=== PATIENT | female | born 1985 | race Caucasian/White ===

== ENCOUNTER 2017-05-17 14:21 | Emergency (ER) | payer MEDICAID ==
[~2017-05-17] VITALS: Ht 165.1 cm; Wt 75.0 kg
[~2017-05-17 14:21] MED LIST: BENZ1LOZ30 PO; BISA10SU60 RC; CARI350T PO; CYCL-1 PO; D ME PO; DOCU-28 PO; FLUT16SP2 BOTHNARES; MAGN296S50 PO; NO HOME MEDS; ONDA4TAB59 PO; ONDA4TAB6 PO; ONDA8TAB9 PO; SUCR1ORA2 PO
[2017-05-17] MEDS ORDERED: acetaminophen 325mg tablet PO ONE (14:55)
[2017-05-17] MEDS ORDERED: ibuprofen 200mg tablet PO ONE (14:55)
[2017-05-17 15:59] VITALS: BP 110/63
== END 2017-05-17 16:00 | disposition home or self-care (01) ==
LOC: ER 14:22
DX: J11.1 Influenza due to unidentified influenza virus with other respiratory manifestations (principal); R07.89 Other chest pain; I10 Essential (primary) hypertension; G89.29 Other chronic pain; F15.10 Other stimulant abuse, uncomplicated; Z88.8 Allergy status to other drugs, medicaments and biological substances
CPT/HCPCS: 99283

== ENCOUNTER → 2017-07-24 | Emergency (ER) | payer MEDICAID ==
[~2017-07-24] VITALS: Ht 165.1 cm; Wt 86.0 kg
[2017-07-24 16:52] VITALS: BP 154/80
[2017-07-24 17:19] LABS: BASOPHILS # (AUTO) 0.1 X10'3 (0-0.2); EOSINOPHILS # (AUTO) 0.3 X10'3 (0-0.9); EOSINOPHILS % (AUTO) 2.2 % (0-6); HEMOGLOBIN 12.6 g/dl (12.0-16.0); LYMPHOCYTES # (AUTO) 2.7 X10'3 (1.1-4.8); LYMPHOCYTES % (AUTO) 20.2 % (21-51); MEAN CORPUSCULAR HEMOGLOBIN 29.6 PG (27.0-31.0); MEAN CORPUSCULAR HGB CONC 34.2 % (33.0-36.5); MEAN CORPUSCULAR VOLUME 86.6 FL (78-98); MEAN PLATELET VOLUME 9.9 FL (7.4-10.4); MONOCYTES # (AUTO) 0.5 X10'3 (0-0.9); MONOCYTES % (AUTO) 4.1 % (2-12); NEUTROPHILS # (AUTO) 9.6 X10'3 (1.8-7.7); NEUTROPHILS % (AUTO) 72.5 % (42-75); PLATELET COUNT 258 X10'3 (140-440); RED BLOOD COUNT 4.27 X10'6 (4.20-5.60); RED CELL DISTRIBUTION WIDTH 13.5 % (11.5-14.5); WHITE BLOOD COUNT 13.2 X10'3 (4.5-11.0)
[2017-07-24 17:28] LABS: INR 0.9 INR; PROTHROMBIN TIME 9.6 SECONDS (9.0-12.0)
[2017-07-24 17:29] LABS: URINE HCG NEGATIVE (NEG)
[2017-07-24 17:34] LABS: CLARITY,URINE CLEAR (Clear); COLOR,URINE YELLOW (Yellow); GLUCOSE, URINE NEGATIVE (Neg); KETONES,URINE NEGATIVE (Neg); LEUKOCYTE ESTERASE ,URINE NEGATIVE (Neg); NITRITES, URINE NEGATIVE (Neg); OCCULT BLOOD,URINE NEGATIVE (Neg); PROTEIN,URINE NEGATIVE (Neg); UROBILINOGEN,URINE 0.2 E.U/dL (0.2-1.0)
[2017-07-24 17:35] LABS: ALANINE AMINOTRANSFERASE 30 U/L (12-78); ALBUMIN 3.5 G/DL (3.4-5.0); ALKALINE PHOSPHATASE 95 IU/L (46-116); ANION GAP 12 (8-16); ASPARTATE AMINO TRANSFERASE 15 U/L (10-37); BILIRUBIN,TOTAL 0.3 MG/DL (0.1-1.0); BLOOD UREA NITROGEN 12 MG/DL (7-18); BUN/CREATININE RATIO 21.4 (6.6-38.0); CALCIUM 8.5 MG/DL (8.5-10.1); CHLORIDE 107 MMOL/L (99-107); CREATININE 0.56 MG/DL (0.40-0.90); GLUCOSE 122 MG/DL (70-104); LIPASE 87 U/L (73-393); POTASSIUM 3.2 MMOL/L (3.5-5.1); SODIUM 142 MMOL/L (135-145); TOTAL CARBON DIOXIDE 22.8 MMOL/L (24-32); TOTAL PROTEIN 7.1 G/DL (6.4-8.2); eGFR > 90 ML/MIN
[2017-07-24 17:36] LABS: UA COLLECTION TYPE CLN CATCH MIDSTREAM
== END | disposition left against medical advice (07) ==
LOC: ER 16:41
DX: R10.9 Unspecified abdominal pain (principal); Z53.21 Procedure and treatment not carried out due to patient leaving prior to being seen by health care provider
CPT/HCPCS: 36415; 80053; 81003; 81025; 83690; 85025; 85610; 99281

== ENCOUNTER 2017-10-23 20:27 | Emergency (ER) | payer MEDICAID ==
[~2017-10-23] VITALS: Ht 165.1 cm; Wt 95.8 kg
[2017-10-23 20:39] VITALS: BP 150/92
[2017-10-23 21:21] LABS: BASOPHILS # (AUTO) 0.1 X10'3 (0-0.2); BASOPHILS % (AUTO) 0.4 % (0-1); EOSINOPHILS # (AUTO) 0.3 X10'3 (0-0.9); HEMATOCRIT 37.9 % (35.0-45.0); HEMOGLOBIN 13.1 g/dl (12.0-16.0); LYMPHOCYTES # (AUTO) 3.3 X10'3 (1.1-4.8); LYMPHOCYTES % (AUTO) 25.1 % (21-51); MEAN CORPUSCULAR HEMOGLOBIN 29.7 PG (27.0-31.0); MEAN CORPUSCULAR HGB CONC 34.4 % (33.0-36.5); MEAN CORPUSCULAR VOLUME 86.2 FL (78-98); MEAN PLATELET VOLUME 9.4 FL (7.4-10.4); MONOCYTES # (AUTO) 0.8 X10'3 (0-0.9); NEUTROPHILS # (AUTO) 8.8 X10'3 (1.8-7.7); NEUTROPHILS % (AUTO) 66.5 % (42-75); PLATELET COUNT 282 X10'3 (140-440); RED CELL DISTRIBUTION WIDTH 13.9 % (11.5-14.5); WHITE BLOOD COUNT 13.2 X10'3 (4.5-11.0)
[2017-10-23 21:32] LABS: INR 0.9 INR; PROTHROMBIN TIME 9.6 SECONDS (9.0-12.0)
[2017-10-23 21:37] LABS: ALANINE AMINOTRANSFERASE 35 U/L (12-78); ALBUMIN 3.4 G/DL (3.4-5.0); ALBUMIN/GLOBULIN RATIO 0.9 (1.1-1.5); ALKALINE PHOSPHATASE 109 IU/L (46-116); ANION GAP 10 (8-16); ASPARTATE AMINO TRANSFERASE 16 U/L (10-37); BILIRUBIN,TOTAL 0.2 MG/DL (0.1-1.0); BLOOD UREA NITROGEN 9 MG/DL (7-18); BUN/CREATININE RATIO 11.7 (6.6-38.0); CALCIUM 8.9 MG/DL (8.5-10.1); CHLORIDE 105 MMOL/L (99-107); CREATININE 0.77 MG/DL (0.40-0.90); GLUCOSE 123 MG/DL (70-104); LIPASE 71 U/L (73-393); POTASSIUM 3.3 MMOL/L (3.5-5.1); SODIUM 141 MMOL/L (135-145); TOTAL CARBON DIOXIDE 25.9 MMOL/L (24-32); TOTAL PROTEIN 7.2 G/DL (6.4-8.2); eGFR 86 ML/MIN
[2017-10-23 21:40] LABS: URINE HCG NEGATIVE (NEG)
[2017-10-23 21:49] LABS: COLOR,URINE YELLOW (Yellow); GLUCOSE, URINE NEGATIVE (Neg); KETONES,URINE NEGATIVE (Neg); LEUKOCYTE ESTERASE ,URINE NEGATIVE (Neg); NITRITES, URINE NEGATIVE (Neg); OCCULT BLOOD,URINE NEGATIVE (Neg); PROTEIN,URINE NEGATIVE (Neg)
[2017-10-23 21:56] LABS: UA COLLECTION TYPE CLN CATCH MIDSTREAM
[2017-10-23 21:57] LABS: CLARITY,URINE TURBID (Clear)
[2017-10-23 21:58] LABS: BACTERIA,URINE 2+ /HPF (Neg); RBC,URINE NONE SEEN /HPF (0-2); SQUAMOUS EPITHELIAL CELL,UR MANY /LPF (FEW); WBC,URINE NONE SEEN /HPF (0-4)
[2017-10-23 21:59] LABS: AMORPHOUS PHOSPHATES 2+
== END 2017-10-23 23:27 | disposition left against medical advice (07) ==
LOC: ER 20:30
DX: R10.9 Unspecified abdominal pain (principal); Z53.21 Procedure and treatment not carried out due to patient leaving prior to being seen by health care provider
CPT/HCPCS: 36415; 74018; 80053; 81001; 81025; 83690; 85025; 85610; 99281

== ENCOUNTER 2018-04-07 17:34 | Emergency (ER) | payer MEDICAID ==
[~2018-04-07] VITALS: Ht 165.1 cm; Wt 104.5 kg
[2018-04-07 17:44] VITALS: BP 198/120
[2018-04-07 18:48] LABS: BASOPHILS % (AUTO) 0.3 % (0-1); EOSINOPHILS # (AUTO) 0.2 X10'3 (0-0.9); EOSINOPHILS % (AUTO) 2.2 % (0-6); HEMATOCRIT 39.7 % (35.0-45.0); HEMOGLOBIN 13.2 g/dl (12.0-16.0); MEAN CORPUSCULAR HEMOGLOBIN 28.8 PG (27.0-31.0); MEAN CORPUSCULAR HGB CONC 33.4 % (33.0-36.5); MEAN CORPUSCULAR VOLUME 86.4 FL (78-98); MEAN PLATELET VOLUME 10.1 FL (7.4-10.4); MONOCYTES # (AUTO) 0.7 X10'3 (0-0.9); MONOCYTES % (AUTO) 7.4 % (2-12); NEUTROPHILS # (AUTO) 6.5 X10'3 (1.8-7.7); NEUTROPHILS % (AUTO) 69.1 % (42-75); PLATELET COUNT 284 X10'3 (140-440); RED CELL DISTRIBUTION WIDTH 14.2 % (11.5-14.5); WHITE BLOOD COUNT 9.4 X10'3 (4.5-11.0)
[2018-04-07 18:49] LABS: PROTHROMBIN TIME 9.7 SECONDS (9.0-12.0)
[2018-04-07 19:01] LABS: ALANINE AMINOTRANSFERASE 58 U/L (12-78); ALBUMIN 3.3 G/DL (3.4-5.0); ALBUMIN/GLOBULIN RATIO 0.8 (1.1-1.5); ALKALINE PHOSPHATASE 118 IU/L (46-116); ANION GAP 8 (8-16); ASPARTATE AMINO TRANSFERASE 45 U/L (10-37); BILIRUBIN,TOTAL 0.3 MG/DL (0.1-1.0); BLOOD UREA NITROGEN 9 MG/DL (7-18); BUN/CREATININE RATIO 14.5 (6.6-38.0); CALCIUM 8.4 MG/DL (8.5-10.1); CHLORIDE 103 MMOL/L (99-107); CREATININE 0.62 MG/DL (0.40-0.90); GLUCOSE 109 MG/DL (70-104); LIPASE 84 U/L (73-393); POTASSIUM 3.5 MMOL/L (3.5-5.1); SODIUM 139 MMOL/L (135-145); TOTAL CARBON DIOXIDE 27.6 MMOL/L (24-32); TOTAL PROTEIN 7.4 G/DL (6.4-8.2); eGFR > 90 ML/MIN
[2018-04-07 19:59] LABS: URINE HCG NEGATIVE (NEG)
[2018-04-07 20:06] LABS: CLARITY,URINE CLOUDY (Clear); COLOR,URINE AMBER (Yellow); GLUCOSE, URINE NEGATIVE (Neg); KETONES,URINE NEGATIVE (Neg); LEUKOCYTE ESTERASE ,URINE NEGATIVE (Neg); OCCULT BLOOD,URINE LARGE (Neg); PH,URINE 7.5 (4.8-8.0); PROTEIN,URINE TRACE mg/dl (Neg)
[2018-04-07 20:07] LABS: UA COLLECTION TYPE CLN CATCH MIDSTREAM
[2018-04-07 20:23] LABS: BACTERIA,URINE FEW /HPF (Neg); MUCUS STRANDS MODERATE /LPF (Neg); NITRITES, URINE NEGATIVE (Neg); RBC,URINE TNTC /HPF (0-2); SQUAMOUS EPITHELIAL CELL,UR FEW /LPF (FEW); WBC,URINE 0-4 /HPF (0-4)
[2018-04-07] MEDS ORDERED: ACET-3068 PO (21:38)
== END 2018-04-07 21:52 | disposition home or self-care (01) ==
LOC: ER 17:34
DX: S29.011A Strain of muscle and tendon of front wall of thorax, initial encounter (principal); R07.89 Other chest pain; G43.909 Migraine, unspecified, not intractable, without status migrainosus; I10 Essential (primary) hypertension; G89.29 Other chronic pain; Z90.49 Acquired absence of other specified parts of digestive tract; Z98.51 Tubal ligation status; Z98.890 Other specified postprocedural states; Z56.0 Unemployment, unspecified; Z87.891 Personal history of nicotine dependence; Z79.899 Other long term (current) drug therapy; Z88.8 Allergy status to other drugs, medicaments and biological substances; X58.XXXA Exposure to other specified factors, initial encounter; Y93.89 Activity, other specified; Y92.89 Other specified places as the place of occurrence of the external cause; Y99.9 Unspecified external cause status
CPT/HCPCS: 36415; 74176; 80053; 81001; 81025; 83690; 85025; 85610; 99284

== ENCOUNTER 2018-04-29 20:47 | Emergency (ER) | payer MEDICAID ==
[~2018-04-29] VITALS: Ht 165.1 cm; Wt 101.0 kg
[~2018-04-29 20:47] MED LIST changes: +ACET-3068 PO
[2018-04-29 20:57] VITALS: BP 167/110
[2018-04-30] MEDS ORDERED: IBUP-1985 PO (01:00)
== END 2018-04-30 01:10 | disposition home or self-care (01) ==
LOC: ER 20:48
DX: S93.691A Other sprain of right foot, initial encounter (principal); G43.909 Migraine, unspecified, not intractable, without status migrainosus; I10 Essential (primary) hypertension; G89.29 Other chronic pain; Z90.49 Acquired absence of other specified parts of digestive tract; Z98.890 Other specified postprocedural states; Z98.51 Tubal ligation status; Z56.0 Unemployment, unspecified; Z88.8 Allergy status to other drugs, medicaments and biological substances; Z79.899 Other long term (current) drug therapy; X50.1XXA Overexertion from prolonged static or awkward postures, initial encounter; Y93.89 Activity, other specified; Y92.89 Other specified places as the place of occurrence of the external cause; Y99.9 Unspecified external cause status
CPT/HCPCS: 73630; 99283

== ENCOUNTER 2019-06-10 15:57 | Emergency (ER) | payer MEDICAID ==
[~2019-06-10] VITALS: Ht 165.1 cm; Wt 93.0 kg
[~2019-06-10 15:57] MED LIST changes: -ACET-3068 PO; +IBUP-1985 PO; -MAGN296S50 PO; +MAGN296S70 PO
[2019-06-10 16:15] VITALS: BP 141/94
[2019-06-10] MEDS ORDERED: morphine 10mg/ml inj. IM ONE (16:50)
== END 2019-06-10 17:29 | disposition home or self-care (01) ==
LOC: ER 15:58
DX: S83.203A Other tear of unspecified meniscus, current injury, right knee, initial encounter (principal); G89.29 Other chronic pain; G43.909 Migraine, unspecified, not intractable, without status migrainosus; I10 Essential (primary) hypertension; Z90.49 Acquired absence of other specified parts of digestive tract; Z98.51 Tubal ligation status; Z98.890 Other specified postprocedural states; Z87.891 Personal history of nicotine dependence; Z56.0 Unemployment, unspecified; Z88.8 Allergy status to other drugs, medicaments and biological substances; Z79.899 Other long term (current) drug therapy; X58.XXXA Exposure to other specified factors, initial encounter; Y93.89 Activity, other specified; Y92.89 Other specified places as the place of occurrence of the external cause; Y99.8 Other external cause status
CPT/HCPCS: 96372; 99283; J2270

== ENCOUNTER 2020-06-24 00:38 | Emergency (ER) | payer MEDICAID ==
[~2020-06-24] VITALS: Ht 165.1 cm; Wt 81.8 kg
--- NOTE | 2020-06-24 00:59 | NUR ---
PAULA () #[phone] FOR [facility]IDE HOME
[2020-06-24] MEDS ORDERED: normal saline 1000ml 1,000 ML IV ONE (01:25)
[2020-06-24] MEDS ORDERED: proCHLORperazine 10 MG/2 ml inj IV ONE (01:25)
[2020-06-24] MEDS ORDERED: diphenhydrAMINE 50 mg/ml inj IV ONE (01:25)
[2020-06-24] MEDS ORDERED: acetaminophen 325mg tablet PO ONE (01:25)
[2020-06-24 03:02] VITALS: BP 121/78
== END 2020-06-24 03:25 | disposition home or self-care (01) ==
LOC: ER 00:39
DX: S06.0X9A Concussion with loss of consciousness of unspecified duration, initial encounter (principal); G43.909 Migraine, unspecified, not intractable, without status migrainosus; I10 Essential (primary) hypertension; G89.29 Other chronic pain; Z87.01 Personal history of pneumonia (recurrent); Z90.49 Acquired absence of other specified parts of digestive tract; Z98.51 Tubal ligation status; Z98.890 Other specified postprocedural states; Z56.0 Unemployment, unspecified; Z88.1 Allergy status to other antibiotic agents; Z88.8 Allergy status to other drugs, medicaments and biological substances; Z79.899 Other long term (current) drug therapy; W01.0XXA Fall on same level from slipping, tripping and stumbling without subsequent striking against object, initial encounter; Y93.89 Activity, other specified; Y92.89 Other specified places as the place of occurrence of the external cause; Y99.8 Other external cause status
CPT/HCPCS: 70450; 96361; 96374; 96375; 99284; J0780; J1200; J7030

== ENCOUNTER 2020-06-27 21:08 | Emergency (ER) | payer MEDICAID ==
[~2020-06-27] VITALS: Ht 165.1 cm; Wt 81.8 kg
[2020-06-27 21:40] VITALS: BP 159/116
[2020-06-27] MEDS ORDERED: BENZ-16 PO (21:57)
[2020-06-27] MEDS ORDERED: AMOX-422 PO (21:57)
== END 2020-06-27 22:17 | disposition home or self-care (01) ==
LOC: ER 21:11
DX: J02.0 Streptococcal pharyngitis (principal); B95.5 Unspecified streptococcus as the cause of diseases classified elsewhere; G43.909 Migraine, unspecified, not intractable, without status migrainosus; G89.29 Other chronic pain; Z90.49 Acquired absence of other specified parts of digestive tract; Z98.51 Tubal ligation status; Z98.890 Other specified postprocedural states; Z56.0 Unemployment, unspecified; Z88.8 Allergy status to other drugs, medicaments and biological substances; Z88.2 Allergy status to sulfonamides; Z79.899 Other long term (current) drug therapy
CPT/HCPCS: 87081; 87880; 99283

== ENCOUNTER 2020-09-13 21:12 | Emergency (ER) | payer MEDICAID ==
[~2020-09-13] VITALS: Ht 165.1 cm; Wt 85.5 kg
[2020-09-13 21:23] VITALS: BP 137/90
== END 2020-09-13 22:49 | disposition left against medical advice (07) ==
LOC: ER 21:13
DX: R05 Cough (principal); Z53.21 Procedure and treatment not carried out due to patient leaving prior to being seen by health care provider

== ENCOUNTER 2021-03-08 12:28 | Emergency (ER) | payer MEDICAID ==
[~2021-03-08] VITALS: Ht 165.1 cm; Wt 88.8 kg
[2021-03-08 13:43] VITALS: BP 128/98
[2021-03-08] MEDS ORDERED: ondansetron 4mg rapidly disintigrating tab PO ONE (16:55)
[2021-03-08] MEDS ORDERED: ketorolac tromethamine 15mg/ml inj. IM ONE (16:55)
[2021-03-08] MEDS ORDERED: HYDROcodone/acetaminophen 10/325mg tab PO ONE (16:55)
[2021-03-08] MEDS ORDERED: CLIN300C70 PO (16:56)
[2021-03-08] MEDS ORDERED: ONDA4TAB6 PO (16:56)
[2021-03-08] MEDS ORDERED: HYDR-3965 PO (16:56)
== END 2021-03-08 17:07 | disposition home or self-care (01) ==
LOC: ER 12:29
DX: K04.7 Periapical abscess without sinus (principal); K08.89 Other specified disorders of teeth and supporting structures; G43.909 Migraine, unspecified, not intractable, without status migrainosus; I10 Essential (primary) hypertension; G89.29 Other chronic pain; Z98.818 Other dental procedure status; Z87.01 Personal history of pneumonia (recurrent); Z56.0 Unemployment, unspecified; Z98.890 Other specified postprocedural states; Z98.891 History of uterine scar from previous surgery; Z98.51 Tubal ligation status; Z79.899 Other long term (current) drug therapy; Z88.2 Allergy status to sulfonamides; Z88.8 Allergy status to other drugs, medicaments and biological substances
CPT/HCPCS: 99283

== ENCOUNTER 2021-03-22 20:31 | Emergency (ER) | payer MEDICAID ==
[~2021-03-22] VITALS: Ht 165.1 cm; Wt 89.6 kg
[2021-03-22 20:38] VITALS: BP 129/78
== END 2021-03-22 22:02 | disposition left against medical advice (07) ==
LOC: ER 20:33
DX: Z53.21 Procedure and treatment not carried out due to patient leaving prior to being seen by health care provider (principal)

== ENCOUNTER 2021-08-15 18:00 | Emergency (ER) | payer MEDICAID ==
[~2021-08-15] VITALS: Ht 165.1 cm; Wt 90.9 kg
[2021-08-15] MEDS ORDERED: AMOX-117 PO (19:49)
[2021-08-15] MEDS ORDERED: HYDR-3964 PO (19:49)
[2021-08-15 20:01] VITALS: BP 156/86
== END 2021-08-15 20:03 | disposition home or self-care (01) ==
LOC: ER 18:01
DX: J34.89 Other specified disorders of nose and nasal sinuses (principal); R05.9 Cough, unspecified; G43.909 Migraine, unspecified, not intractable, without status migrainosus; I10 Essential (primary) hypertension; G89.29 Other chronic pain; F17.210 Nicotine dependence, cigarettes, uncomplicated; Z56.0 Unemployment, unspecified; Z88.8 Allergy status to other drugs, medicaments and biological substances; Z88.2 Allergy status to sulfonamides; Z79.899 Other long term (current) drug therapy
CPT/HCPCS: 71045; 99283

== ENCOUNTER 2022-03-13 19:49 | Emergency (ER) | payer MEDICAID ==
[~2022-03-13 19:49] MED LIST changes: +MAGN296S PO; -MAGN296S70 PO
--- NOTE | 2022-03-13 20:45 | NUR ---
PT WOULD CAME TO ED [facility] WAIT WAS 10 HR PT SHOWED THIS RECORDER PAPER FROM [facility] WHERE SHE WAS SEEN AND TREATED FOR WHITE . PT WAS TO FOLLOW UP WITH PRIOR BUT HAS COME TO [facility] TO SEE WHAT ELSE THEY CAN DO . PT BECAME ADJITATED AND HOSTILE WHEN ASKING QUESTION ABOUT WHAT HER NEEDS ARE " I DONT WANT TO BE HERE I SHOULD HAVE JUST WENT TO [facility] THEY HAVE ALL Y RECORDES , I AM GOING TO GO THERE . PT AND HER DAIGTHER LEFT TRIAGE WITHOUT BEING SEEN
== END 2022-03-13 20:50 | disposition left against medical advice (07) ==
LOC: ER 19:50
DX: Z00.8 Encounter for other general examination (principal); Z53.21 Procedure and treatment not carried out due to patient leaving prior to being seen by health care provider

== ENCOUNTER 2022-12-07 19:55 | Emergency (ER) | payer MEDICAID ==
[~2022-12-07 19:55] MED LIST changes: -MAGN296S PO; +MAGN296S89 PO
== END 2022-12-07 21:07 | disposition left against medical advice (07) ==
LOC: ER 19:56
DX: M25.552 Pain in left hip (principal); Z53.21 Procedure and treatment not carried out due to patient leaving prior to being seen by health care provider

== ENCOUNTER 2023-06-25 17:20 | Emergency (ER) | payer MEDICAID ==
[~2023-06-25] VITALS: Ht 165.1 cm; Wt 100.0 kg
[2023-06-25 17:21] VITALS: BP 140/81; PULSE 75; TEMP 97.6; O2SAT 97
[2023-06-25] MEDS ORDERED: NAPR-56 PO (21:24)
[2023-06-25 21:40] VITALS: RESP 16
[2023-06-25] MEDS: ketorolac trometh inj. 60 MG/2 ML VIAL IM ONE (21:40)
== END 2023-06-25 21:58 | disposition home or self-care (01) ==
LOC: ER 17:20
DX: S60.011A Contusion of right thumb without damage to nail, initial encounter (principal); I10 Essential (primary) hypertension; G43.909 Migraine, unspecified, not intractable, without status migrainosus; Z90.49 Acquired absence of other specified parts of digestive tract; Z88.8 Allergy status to other drugs, medicaments and biological substances; Z79.899 Other long term (current) drug therapy; X58.XXXA Exposure to other specified factors, initial encounter; Y93.89 Activity, other specified; Y92.89 Other specified places as the place of occurrence of the external cause; Y99.8 Other external cause status
CPT/HCPCS: 73140; 96372; 99283; J1885; A6449

== ENCOUNTER 2023-08-25 10:36 | Emergency (ER) | payer MEDICAID ==
[~2023-08-25] VITALS: Ht 165.1 cm; Wt 101.8 kg
[2023-08-25 10:41] VITALS: BP 139/84; PULSE 74; TEMP 97.4; O2SAT 99
[2023-08-25 10:55] VITALS: RESP 16
[2023-08-25] MEDS ORDERED: ONDA4TAB12 PO (11:20)
== END 2023-08-25 11:31 | disposition home or self-care (01) ==
LOC: ER 10:37
DX: T50.991A Poisoning by other drugs, medicaments and biological substances, accidental (unintentional), initial encounter (principal); I10 Essential (primary) hypertension; Z98.890 Other specified postprocedural states; Z90.49 Acquired absence of other specified parts of digestive tract; Z56.0 Unemployment, unspecified; Z88.8 Allergy status to other drugs, medicaments and biological substances; Z88.2 Allergy status to sulfonamides; Z79.899 Other long term (current) drug therapy; Z79.2 Long term (current) use of antibiotics; Y92.89 Other specified places as the place of occurrence of the external cause
CPT/HCPCS: 82948; 99283